=== PATIENT | female | born 1980 | race Caucasian/White ===

== ENCOUNTER → 2018-02-08 13:52 | Outpatient (CLI) | payer MEDICAID, SELFPAY ==
[2018-02-05 15:06] VITALS: BMI 27.5
--- NOTE | 2018-02-08 13:58 | MRI_ITS ---
STUDY: MRI FEMALE PELVIS WITHOUT AND WITH IV CONTRAST. REASON FOR EXAM: Female, 37 years old. CA of vaginal cuff, history of cervical CA. Removal of left ovary,uterus and cervix 2016 TECHNIQUE: Multisequence multiplanar MRI of the pelvis was performed without and with IV contrast, Gadavist 8 mL. COMPARISON: CT abdomen and pelvis 02/08/2018. FINDINGS: Intimately adjacent to the right apical aspect of the vaginal cuff remnant, and extending into the right adnexa, there is a multi loculated mass exhibiting both thin and thickened septations, with enhancement of the septations, and exhibiting some minimal nodular components against the right lateral internal wall of the cysts. These features are consistent with cystic malignancy. This process measures 5.9 cm anterior-posterior, 4.3 cm transverse, and 5.8 cm craniocaudal. No apparent lymphadenopathy. The vaginal vault appears normal. The urinary bladder appears to be very mildly thick-walled and mildly trabeculated. Evaluated portions of the bowel exhibit no acute abnormality. Several loops of ileum are intimately associated with the wall of the right adnexal mass. Probably merely draped around its margins. Adhesions to the mass cannot be entirely excluded. MRI/Pelvis W/WO Contrast IMPRESSION: Multiloculated complex cystic mass of the right adnexa intimately associated with the right apical margin of the remnant vaginal cuff, consistent with malignancy. Electronically Signed: Mike Zavaleta, at 14:54 EDT Tel , Service support ,
== END ==
PROVIDERS: Family Provider Nurse Practitioner Family; PCP Nurse Practitioner Family; Visit Provider Student in an Organized Health Care Education/Training Program
DX: C53.9 Malignant neoplasm of cervix uteri, unspecified (principal)
CPT/HCPCS: 72197; A9585

== ENCOUNTER 2018-02-16 11:12 | Day surgery (SDC) | payer MEDICAID, SELFPAY ==
[2018-02-08 16:23] VITALS: BMI 27.5
[2018-02-16] VITALS (7 sets, daily range): BP systolic 92–116; BP diastolic 54–75; PULSE 69–97; RESP 16; TEMP 36.6–37.1; O2SAT 98–100; BMI 27.6
[2018-02-16] MEDS: Cefazolin 2 GM in 0.9% Normal Saline 100 ML IV (13:00)
[2018-02-16] MEDS: Bupivacaine Mpf 0.5% 30 ML VIAL (13:25)
--- NOTE | 2018-02-16 13:32 | PCM.OPRPT ---
Problem List (1) Cervix cancer Status: Acute Qualifiers: Malignant neoplasm of cervix location: unspecified location (2) Encounter for adjustment or management of vascular access device Status: Acute Report of Operation Date of Procedure: 02/16/18 Pre-Operative Diagnosis: Cervical cancer. Adjustment fit for CVS catheter Post-Operative Diagnosis: same Surgery/Procedure Performed:: Placement of a right IJ PowerPort Type of Anesthesia:: MAC Description of Procedure: Patient was brought into the operating room. Placed in the supine position. I ultrasound the right neck and identify the internal jugular vein. The neck and chest were then marked appropriately. They were then sterilely prepped and draped. Local was injected into the neck. Seldinger's technique was used to gain access to the internal jugular vein. A guidewire was placed over the needle the needle was removed. Fluoroscopy was used to confirm proper placement of the wire. I injected local into the chest. An incision was made and electrocautery was used to create a pocket for the port. I made a skin luigi in the neck place a dilator over the guidewire removing the dilator and placed the dilator and sheath over the guidewire removing the dilator and guidewire single lumen catheter was then placed into the superior vena cava fluoroscopy was used to confirm proper length. I tunneled from the pocket created over the collarbone into the neck and brought the catheter down cut to length placed a locking amount of the catheter and the port onto the catheter and secured the 2 with a locking hub. It flushed and irrigated well was flushed with 5 cc of hep flush. It was sutured into the pocket with 2 sutures of 0 Prolene. Skin incisions were brought together with deep dermal stitches of 3-0 Vicryl. Dermabond was applied sterile dressings were applied the patient tolerated the procedure well. Postoperative chest x-ray was obtained showing no pneumothorax and the tip of the catheter to be located within the superior vena cava. - Admit VTE Documentation VTE Present on Admission: No VTE Mechan Device Prophylaxis: SCD's VTE Pharm Prophylaxis ordered?: No Reason prophylaxis not ordered:: Treatment Not Indicated
--- NOTE | 2018-02-16 13:33 | PCM.DC.POR ---
Allergies/Adverse Reactions: Allergies adhesive tape Allergy (Verified 02/15/18 10:54) Rash Sulfa (Sulfonamide Antibiotics) Allergy (Verified 02/15/18 10:54) Unknown Medications to take at Discharge Aspirin/Acetaminophen/Caffeine [Excedrin Migraine Caplet] 1 ea PO PRN PRN 02/05/18 Multivitamin [Multiple Vitamins] 1 ea PO DAILY 02/05/18 Lidocaine/Prilocaine [Lidocaine-Prilocaine Cream] 30 gm TP DAILY PRN PRN #1 cream..g. 02/13/18 Ondansetron [Zofran Odt] 8 mg PO Q8H PRN PRN 10 Days #30 tab.rapdis 02/13/18 Melatonin 5 mg PO QHS 02/15/18 Oxycodone HCl/Acetaminophen [Percocet 5/325] 1 - 2 tab PO Q4H PRN PRN 4 Days #30 tab 02/16/18 The following prescriptions were given: Oxycodone HCl/Acetaminophen [Percocet 5/325] 1 - 2 tab PO Q4H PRN PRN 4 Days #30 tab PRN Reason: Pain Primary Care Physician: Emma Giraldo NP-C [Primary Care Provider] - Test Results: Test results from this visit will be discussed in further detail at your follow-up appointment, if applicable.
[2018-02-16] MEDS: oxyCODONE 5 MG Tablet PO (14:42)
== END 2018-02-16 15:26 | disposition home or self-care (01) ==
LOC: SDC 11:14 → AC 11:15
PROVIDERS: Family Provider Nurse Practitioner Family; PCP Nurse Practitioner Family; Visit Provider Surgery
PROC: (CPT 36561; principal; 2018-02-16 13:30)
DX: Z45.2 Encounter for adjustment and management of vascular access device (principal); C53.9 Malignant neoplasm of cervix uteri, unspecified; F41.9 Anxiety disorder, unspecified; F32.9 Major depressive disorder, single episode, unspecified; Z79.899 Other long term (current) drug therapy; Z87.891 Personal history of nicotine dependence; J44.9 Chronic obstructive pulmonary disease, unspecified
CPT/HCPCS: 36561; 71045; 77001; J7120; C1788; J2405

== ENCOUNTER → 2018-03-16 12:29 | Outpatient (CLI) | payer MEDICAID, SELFPAY ==
[2018-02-08 16:23] VITALS: BMI 27.5
--- NOTE | 2018-03-16 13:00 | MRI_ITS ---
STUDY: MR PELVIS WITH T WITHOUT CONTRAST REASON FOR EXAM: Female, 37 years old. Recurrent cervical cancer. Assess disease response to chemotherapy and radiation therapy. TECHNIQUE: Standardized fat and water weighted pulse sequences were obtained in all 3 orthogonal planes, pre-and post contrast administration. 7 ml of Gadavist contrast material was administered intravenously for the contrast portion of the examination. COMPARISON: MRI pelvis 02/08/2018, CT pelvis 02/08/2018.. FINDINGS: On prior imaging, there is a complex cystic mass with multiple thickened septations in the right adnexa. Body wall soft tissues: No acute process. Osseous structures: No acute process. Minimal disc degeneration with disc bulge at L5-S1 without stenosis. Extraperitoneal: There is no mass or lymphadenopathy of the pelvic floor, sidewalls, prevesical space or retroperitoneum. Bowel: Evaluated portions of the small bowel are normal. Normal appendix. Evaluated portions of the large bowel exhibit no acute process. Urinary tract: The distal ureters are nondilated. Urinary bladder wall is mildly thickened and mildly trabeculated. Vagina: Normal. Remnant cervical cuff: The cystic right adnexal mass extends upward from the margin of the remnant cervical cuff, closely associated. However, there appears to be a definable tissue planes between the 2 structures especially on the sagittal images, and there is no morphologic deformity of the remnant cervical cuff to suggest that the cystic lesion of the right adnexa is emerging from dose tissues. Left ovary: Surgically absent. Right ovary: The right ovarian cystic mass has changed in morphology compared to prior imaging. It now has fewer and thinner septations although there is still a mildly thickened enhancing septation along its inferior lateral aspect, and there is still mild thickening and enhancement of the inferior lateral wall. The remainder of the wall of the structure is rather thin. The entire structure now measures up to 7.3 cm anterior-posterior, 5.8 cm craniocaudal, and 6.6 cm transverse. The thickened tissue lying along the right inferior lateral margin measures up to 1.17 cm in thickness, and appears to be crab clawing around the margin of the cyst. This segment lies along the margin of the broad ligament in the expected position of an ovary. This may be normal ovarian tissue. There is no pelvic free fluid. MRI/Pelvis W/WO Contrast IMPRESSION: On prior imaging the cystic mass measured up to 5.9 cm anterior-posterior, 4.3 cm transverse and 5.8 cm craniocaudal. On today's images, the cystic mass measures up to 7.3 cm anterior-posterior, 6.6 cm transverse, and 5.8 cm craniocaudal. This cystic mass has mildly expanded in size. However compared to prior imaging there is an increase in the cystic component, with a notable decrease in the number and thickness of septations, in the thickness of the wall, and of mild nodularity of the septations. This may reflect partial regression of viable neoplasm, despite the expansion of the cystic component. On today's study there is a more distinct soft tissue plane between the base of the cystic neoplasm, and the margin of the cervical cuff remnant. Therefore this supports ovarian origin of the neoplasm rather than cervical origin. Electronically Signed: Mike Zavaleta, at 14:49 EDT Tel , Service support ,
== END ==
PROVIDERS: Family Provider Nurse Practitioner Family; PCP Nurse Practitioner Family
DX: D49.59 Neoplasm of unspecified behavior of other genitourinary organ (principal)
CPT/HCPCS: 72197; A9585

== ENCOUNTER → 2019-02-17 | Outpatient (CLI) | payer MEDICAID, SELFPAY ==
[2018-02-08 16:23] VITALS: BMI 27.5
[2019-02-17 14:00] VITALS: BMI 28.1
== END | disposition home or self-care (01) ==
LOC: LABSPEC 16:36
PROVIDERS: Family Provider Nurse Practitioner Family; PCP Nurse Practitioner Family; Visit Provider Physician Assistant Medical
DX: R30.0 Dysuria (principal)
CPT/HCPCS: 87086; 87088

== ENCOUNTER 2019-04-19 00:37 | Emergency (ER) | payer MEDICAID, SELFPAY ==
[2018-02-08 16:23] VITALS: BMI 27.5
[2019-02-17 14:00] VITALS: BMI 28.1
[2019-04-19 00:39] VITALS: BP 126/74; PULSE 79; RESP 19; TEMP 37.3; O2SAT 99; BMI 27.8
[2019-04-19 00:45] VITALS: BP 112/75; PULSE 76; RESP 17; TEMP 37.2; O2SAT 99
--- NOTE | 2019-04-19 01:22 | ED.VIS.GEN ---
History of Present Illness Chief Complaint: Constipation Informant: Patient, Significant Other Onset: Weeks - 1 Context: Gradual Onset Timing: Continuous Quality: constipated Current Severity: Severe Maximum Severity: Severe Worsened by: n/a Relieved by: nothing - tried stool softeners, miralax, MOM Associated Symptoms: Bloating, pressure in abdomen without other pain Narrative: Patient has had constipation off and on for about 1-2 months. She has switched back and forth from diarrhea from time to time, she has had urinary infections last month and was on a couple courses of antibiotics. She has had back pain that is worsening and just started taking Percocet prescribed by her doctor 2 days ago which made her constipation worse and now she feels like she needs to go but cannot. She did nausea but no vomiting. No fevers. No significant pain in her abdomen just pressure and fullness feeling. - Past Medical History (1) Cervix cancer Status: Chronic (2) Anemia Status: Chronic Past Medical History - Allergies and Home Meds Allergies/Adverse Reactions: Allergies Sulfa (Sulfonamide Antibiotics) Allergy (Severe, Verified 04/19/19 00:41) Hives adhesive tape Allergy (Intermediate, Verified 04/19/19 00:41) Rash Primary Care Physician: Emma Giraldo NP-C [Primary Care Provider] - Surgical History: hysterectomy Lives: Spouse/ Significant Other Smoking Status: Former smoker Review of Systems General: Denies: Chills, Fever, Sweats Cardiovascular: Denies: Chest pain, Palpitations Respiratory: Denies: Dyspnea, Cough Gastrointestinal: Reports: Abdominal pain, Nausea, Diarrhea - Some today after taking laxatives without significant stool production, Constipation. Denies: Melena, Hematochezia Genitourinary: Denies: Dysuria, Hematuria, Frequency Musculoskeletal: Reports: Back pain. Denies: Neck pain, Swelling, Extremity Pain Physical Exam Vital Signs/Narrative: Vital Signs Temp Pulse Resp BP Pulse Ox 04/19/19 00:45 99 F 76 17 112/75 99 04/19/19 00:39 99.1 F 79 19 H 126/74 H 99 Inital Vital Signs reviewed: Yes General: Well nourished, Well developed, No Acute Distress Head: Normocephalic, Atraumatic Eyes: Perrl, EOMI Cardiovascular: Regular rate, Regular rhythm, No murmurs Respiratory: No distress, CTA bilaterally, Chest nontender Abdomen: Soft, Nontender, Normal bowel sounds, - - Mild distention, soft Rectal: Nontender, - - No large area of hard stool palpable. Some soft nonbloody brown stool on digital exam. No abscess. Skin: Normal color, No rash Neurological: Alert, Oriented x3, Cranial nerves II-XII grossly intact, Normal Strength, Normal Sensation Psychological: Normal affect, Normal Mood Diagnostic/Tx/Re-eval - Medical Decision Making Abdomen is benign, symptoms are consistent with constipation and I do not think she needs work-up here. She was agreeable to treatment with manual disimpaction and an enema after we discussed the causes and treatments of constipation. She has MiraLAX at home that she can use. I was not able to take out any stool, but after soapsuds enema she did have a bowel movement, some stool came out, and she was feeling better and is requesting to be discharged home which I think is reasonable. We discussed using magnesium citrate as needed as well. ED Disposition - Plan for ED Patient: Disposition: Home or Assisted Living Diagnosis: Constipation Instructions: CONSTIPATION (Adult) Referrals: Emma Giraldo NP-C [Primary Care Provider] - 3-5 Days if not improving Additional Instructions: Magnesium citrate -- drink half bottle and alan with plenty of fluids/water. It will take several hours for it to produce a bowel movement. If you do not have great results, you may repeat 24 hours after the initial with the rest of the bottle. Use stool softener simultaneously, such as docusate sodium/Colace. After all of that, you may continue then using MiraLAX 1 capful dissolved, daily. Limit your use of Percocet, as it makes constipation worse.
[2019-04-19] MEDS: Magnesium Citrate 300 ML 150 ML PO (03:25)
[2019-04-19 03:26] VITALS: BP 107/65; PULSE 77; RESP 17; O2SAT 99
== END 2019-04-19 03:29 | disposition home or self-care (01) ==
PROVIDERS: Emergency Provider Emergency Medicine; Family Provider Nurse Practitioner Family; PCP Nurse Practitioner Family
DX: K59.00 Constipation, unspecified (principal); R11.0 Nausea; D64.9 Anemia, unspecified; Z85.41 Personal history of malignant neoplasm of cervix uteri; Z87.440 Personal history of urinary (tract) infections; Z79.82 Long term (current) use of aspirin; Z87.891 Personal history of nicotine dependence
CPT/HCPCS: 99284

== ENCOUNTER 2019-05-04 13:23 | Emergency (ER) | payer MEDICAID, SELFPAY ==
[2018-02-08 16:23] VITALS: BMI 27.5
[2019-05-04 13:24] VITALS: BP 124/87; PULSE 117; RESP 18; TEMP 36.4; BMI 26.4
--- NOTE | 2019-05-04 13:43 | RAD_ITS ---
STUDY: X-RAY - SACRUM/COCCYX REASON FOR EXAM: Female, 38 years old. Low back pain. TECHNIQUE: 4 view(s) of the sacrum and coccyx were obtained. COMPARISON: None. FINDINGS: Normal bilateral sacroiliac joints. Normal visualized sacral ala and fused sacral bodies. Normal sacrococcygeal junction with a normal angulation. Normal coccygeal segments. There are multiple pelvic calcifications consistent with phleboliths. RAD/Sacrum-Coccyx min 2 Views IMPRESSION: No demonstrated acute osseous changes. Electronically Signed: Jonathon Sánchez MD at 15:13 EST Tel , Service support ,
[2019-05-04] MEDS: Ketorolac 30 MG/ML Syringe IM (14:02)
--- NOTE | 2019-05-04 14:20 | ED.DCSUM_ITS ---
History of Present Illness Chief Complaint: Back Informant: Patient Narrative: 38-year-old female presents with tailbone pain. States that she has been having this for a month. It has been worsening over the last few days. States that in 3 days she is scheduled to have an MRI done. States that her oncologist has been prescribing her oxycodone. Initially was taking 5 mg oxycodone. Lately she has been taking 10 mg oxycodone every 3 hours. Last dose was 9 AM today. States that she is now out of her pain medicine. Denies any falls or injuries. Denies any fevers or chills. Denies any nausea or vomiting. States pain is worse with movement and sitting on the toilet. Denies any dysuria. Denies any urinary retention, stool incontinence or saddle anesthesia. Past Medical History - Allergies and Home Meds Allergies/Adverse Reactions: Allergies Sulfa (Sulfonamide Antibiotics) Allergy (Severe, Verified 05/04/19 13:24) Hives adhesive tape Allergy (Intermediate, Verified 05/04/19 13:24) Rash Primary Care Physician: Emma Giraldo NP-C [Primary Care Provider] - Surgical History: hysterectomy Smoking Status: Never smoker Review of Systems General: Denies: Chills, Fever Cardiovascular: Denies: Chest pain Respiratory: Denies: Dyspnea, Cough Gastrointestinal: Denies: Abdominal pain, Nausea, Vomiting Musculoskeletal: Reports: - - Tailbone pain Neurological: Denies: Headache, Weakness Physical Exam Vital Signs/Narrative: Vital Signs Temp Pulse Resp BP 05/04/19 13:24 97.6 F L 117 H 18 124/87 H General: Well nourished, Well developed, No Acute Distress Head: Normocephalic, Atraumatic Eyes: Perrl, EOMI ENT: Moist mucous membranes, No rhinorrhea Neck: Supple, Nontender Cardiovascular: Regular rate, Regular rhythm, No murmurs Respiratory: No distress, CTA bilaterally, Chest nontender Abdomen: Soft, Nontender, Nondistended, Normal bowel sounds Back: - - No tenderness throughout thoracic or lumbar midline spine. Patient does admit to tenderness over her sacral region. No abscess noted. No signs of trauma. No cellulitis. Patient does have minimal pain with palpation Extremities: Nontender, No edema Skin: Normal color, No rash Neurological: Alert, Oriented x3, Cranial nerves II-XII grossly intact, Normal Strength, Normal Sensation, - - 5 out of 5 strength in the lower extremities. EHL intact bilaterally. Distal pulses intact. 2/4 patellar reflexes bilaterally. Psychological: Normal affect, Normal Mood Diagnostic/Tx/Re-eval - Medical Decision Making Evaluated for tailbone pain. Denies any trauma. Appears well and nontoxic. X- ray obtained. Given Toradol. Patient does have a history of hysterectomy. I am not concerned for . X-rays unremarkable. Patient's pain did improve with her Toradol. Patient will be given a short course of narcotic pain medication. Orders was reviewed. She will be instructed to follow-up with her primary care provider in 2 to keep her appointment for her MRI. Patient was in agreement with the plan and discharged home. ED Disposition - Plan for ED Patient: Disposition: Home or Assisted Living Diagnosis: Tail bone pain Instructions: BACK PAIN (Acute or Chronic) Prescriptions: Oxycodone HCl/Acetaminophen [Percocet 5/325] 1 - 2 tablet PO Q4H PRN PRN 3 Days #12 tablet PRN Reason: Pain Referrals: Emma Giraldo NP-C [Primary Care Provider] - 3-5 Days
--- NOTE | 2019-05-04 16:00 | ED.DCSUM_ITS ---
- ER Visit Summary Date of Service: 05/04/19 Chief Complaint: [Addendum to dictation by Dr. Sourav Gaytan] History of Present Illness: The patient is a 38 F [presented to the emergency department complaining of pain in her low back and sacrum for about a month. Patient states she initially started with some urinary tract symptoms that resolved with the pain never resolved. Patient states that she is currently being seen by her primary care physician and oncologist for this pain. Patient has a scheduled MRI in 3 days of her low back and sacrum. Patient recently had a PET scan of the area and no abnormalities were noted. Patient denies any falls or trauma. Patient's been using oxycodone at home for pain and gets temporary relief but then the pain returns pretty quickly. Patient had a hard time sleeping at night. Patient also has been using ibuprofen. Decreased appetite.] Physical Examination: [HEENT-PERRLA, EOMI. Cranial nerves II through XII grossly intact. TMs clear. Mucous membranes moist. No adenopathy. Cardiovascular-regular rate and rhythm without murmur or ectopy Lungs-clear to auscultation, chest wall stable without crepitus or subcu emphysema Abdomen-normoactive bowel sounds, soft, nontender, no rebound or rigidity, no peritoneal signs. Back exam-patient has some diffuse tenderness over the lumbar paraspinal musculature on the right and left as well as some lower lumbar spine tenderness on exam. There is no erythema or warmth noted. Patient has negative straight leg raises. Deep tendon reflexes are plus 2 out of 4 bilaterally at the patella and Achilles. Patient has normal 5 extension. Extremities-intact ?4, normal range of motion, normal pulses, atraumatic] Test Results: [X-rays of the pelvis were negative] Emergency Department Course and Treatment: [She was given Toradol in the department she had good pain relief with that.] Treatment Plan: [She will be given a few oxycodone for pain to get her through the time. Between now and her MRI. Patient will be advised to follow-up with primary care physician and oncologist.] Disposition: [Discharged home in stable condition] Impression: [Back pain-etiology uncertain] This note was generated with [employer] software. It may contain incorrect words, spelling, and punctuation that were not noted in review of the chart prior to signing ED Disposition - Plan for ED Patient: Referrals: Emma Giraldo, INOCENC[facility]-C [Primary Care Provider] -
[2019-05-04 16:42] VITALS: BP 112/69; PULSE 74
== END 2019-05-04 16:43 | disposition home or self-care (01) ==
PROVIDERS: Emergency Provider Emergency Medicine; Family Provider Nurse Practitioner Family; PCP Nurse Practitioner Family
DX: M54.5 Low back pain (principal); M53.3 Sacrococcygeal disorders, not elsewhere classified
CPT/HCPCS: 72220; 96372; 99282

== ENCOUNTER 2019-05-06 11:11 | Emergency (ER) | payer MEDICAID, SELFPAY ==
[2018-02-08 16:23] VITALS: BMI 27.5
[2019-05-06 11:13] VITALS: BP 106/89; PULSE 117; RESP 20; TEMP 36.3; O2SAT 98; BMI 26.1
[2019-05-06 11:54] VITALS: BP 110/68; PULSE 79; RESP 18; O2SAT 99
[2019-05-06] MEDS: diazePAM 5 MG Tablet PO (11:59)
--- NOTE | 2019-05-06 12:02 | RAD_ITS ---
STUDY: X-RAY - ABDOMEN/PELVIS REASON FOR EXAM: Female, 38 years old. Constipation TECHNIQUE: Single AP view of the abdomen / pelvis. COMPARISON: None. FINDINGS: Normal visualized lung bases. There is an unremarkable bowel gas pattern. There is no demonstrated free abdominal air. The visualized liver, spleen and kidneys are grossly normal in size and morphology. Normal soft tissue structures. Normal visualized osseous structures. RAD/Abdomen Single View IMPRESSION: Normal x-ray examination of the abdomen and pelvis. Electronically Signed: Mike Gurrola MD at 12:24 EST Tel , Service support ,
--- NOTE | 2019-05-06 12:53 | ED.VIS.GEN ---
History of Present Illness Chief Complaint: Back Informant: Patient Onset: Today Current Severity: Moderate Maximum Severity: Moderate Narrative: Patient has chronic back pain. In fact she is due to have an MRI tomorrow. She comes today because she is worried about her spine since she had an episode of bowel incontinence. She had just taken milk of magnesia a few hours before that. She denies any decreased sensation around her rectum. She also has chronic vaginal bleeding from some sort of endovaginal growth that she is being seen by her [employer] doctor, she had a recent biopsy. She denies any dysuria. She denies any weakness in her arms or legs, she has no paresthesias. Past Medical History - Allergies and Home Meds Allergies/Adverse Reactions: Allergies Sulfa (Sulfonamide Antibiotics) Allergy (Severe, Verified 05/06/19 11:12) Hives adhesive tape Allergy (Intermediate, Verified 05/06/19 11:12) Rash Primary Care Physician: Emma Giraldo NP-C [Primary Care Provider] - Past Medical History: - - Call cancer a in remission, chronic back pain Surgical History: hysterectomy Smoking Status: Former smoker Review of Systems General: Denies: Fever Cardiovascular: Denies: Chest pain Respiratory: Denies: Dyspnea Gastrointestinal: Denies: Abdominal pain, Nausea, Vomiting Genitourinary: Reports: - - Chronic vaginal bleeding despite hysterectomy being followed up by [employer]. Denies: Dysuria, Hematuria, Frequency Musculoskeletal: Reports: Back pain Skin: Denies: Rash Neurological: Denies: Headache, Weakness Psych: Reports: Anxiety Endocrine: Denies: Polyuria Hematologic: Denies: Easy bruising, Easy bleeding Physical Exam Vital Signs/Narrative: Vital Signs Temp Pulse Resp BP Pulse Ox 05/06/19 11:54 79 18 110/68 99 05/06/19 11:13 97.4 F L 117 H 20 H 106/89 H 98 General: - - Appears somewhat anxious ENT: Moist mucous membranes Cardiovascular: Regular rate, Regular rhythm Respiratory: No distress, CTA bilaterally Abdomen: Nontender, Nondistended Rectal: - - Normal rectal tone. Normal sensation. : - - External exam is normal. Back: - - Tenderness over the lumbar region diffusely. Extremities: No edema. Negative for: Tenderness Neurological: - - Normal patellar and Achilles reflexes. Normal plantarflexion and dorsiflexion of both feet and both great toes. Psychological: Tearful Diagnostic/Tx/Re-eval KUB read by myself as well as the radiologist. Shows normal bowel gas pattern. No signs of obstruction. No obvious stool burden - Medical Decision Making Has a normal KUB. Appears well. She has no signs of cauda equina. She is reassured. The reason for her burst of stool is likely because of the milk of magnesia. I will discharge her she can get an MRI tomorrow she was quite anxious and I gave her some Valium she significantly improved. Discharge stable condition ED Disposition - Plan for ED Patient: Disposition: Home or Assisted Living Diagnosis: Back pain Instructions: BACK AND NECK PAIN, General Referrals: Emma Giraldo NP-C [Primary Care Provider] -
[2019-05-06 13:16] VITALS: BP 112/89; PULSE 82; RESP 16; O2SAT 99
== END 2019-05-06 13:17 | disposition home or self-care (01) ==
PROVIDERS: Emergency Provider Emergency Medicine; Family Provider Nurse Practitioner Family; PCP Nurse Practitioner Family
DX: M54.9 Dorsalgia, unspecified (principal); G89.29 Other chronic pain; N93.9 Abnormal uterine and vaginal bleeding, unspecified; F41.9 Anxiety disorder, unspecified; Z90.710 Acquired absence of both cervix and uterus; Z87.891 Personal history of nicotine dependence
CPT/HCPCS: 74018; 99282

== ENCOUNTER 2019-05-23 21:29 | Emergency (ER) | payer MEDICAID, SELFPAY ==
[2018-02-08 16:23] VITALS: BMI 27.5
[2019-05-23 21:30] VITALS: BP 107/74; PULSE 140; RESP 18; TEMP 36.2; O2SAT 97; BMI 25.1
[2019-05-23 22:36] LABS: Absolute Lymphocyte Count 1.26 X10^3/uL (0.83-4.51); Basophil# 0.04 X10^3/uL; Basophil% 0.4 % (0-1); Eosinophil# 0.32 X10^3/uL; Hematocrit 32.1 % (37-47); Hemoglobin 10.5 g/dL (12.0-15.0); Lymphocyte # 1.26 X10^3/ul (4.0); Lymphocyte % 11.9 % (19-41); Mean Corp Hgb Conc 32.7 g/dL (32-36); Mean Corpuscular Hgb 29.6 pg (27.0-32.0); Mean Corpuscular Volume 90.4 fL (81-99); Mean Platelet Vol. 8.6 fl (6.2-12.0); Monocyte# 0.88 X10^3/uL; Monocyte% 8.3 % (0-10); NRBC Flagged by Analyzer 0 % (0-5); Neutrophil # 7.99 X10^3/uL (2.7-7.7); Neutrophil % 75.7 % (47-70); Platelet Count 584 K/mm3 (150-450); RBC Distribution Width CV 13.2 % (11.6-14.6); RBC Distribution Width SD 43.4 fl (35.1-43.9); Red Blood Count 3.55 M/mm3 (4.2-5.4); White Blood Count 10.6 K/mm3 (4.4-11.0)
[2019-05-23 22:38] LABS: Anion Gap 11 (5-15); BUN 13 mg/dL (7-18); BUN/Creat Ratio 20.2 RATIO (10-20); Calcium,Total 9.7 mg/dL (8.5-10.1); Chloride 104 mmol/L (98-107); Creatinine, Serum 0.64 mg/dL (0.55-1.02); EST Glomerular Filtration Rate 109 mL/min (>60); Est Glom Filt Rate - Afr Amer 132 mL/min (>60); Estimated Creatinine Clearance 101.91 ml/min; Glucose 110 mg/dL (74-106); Potassium 3.3 mmol/L (3.5-5.1); Sodium Level 139 mmol/L (136-145)
[2019-05-23] MEDS: 0.9% Normal Saline 1,000 ML 999 ML IV (23:08)
--- NOTE | 2019-05-23 23:10 | ED.DCSUM_ITS ---
- ER Visit Summary Date of Service: 05/23/19 Chief Complaint: Vaginal bleeding History of Present Illness: The patient is a 39 F who presents with vaginal bleeding. It started today. Last week the patient had a colostomy placement with a rectovaginal fistula repair performed at [facility]. She states that things have been going well up until today when she started bleeding. She had no increase in pain. She has a history of cervical cancer and has had a radical hysterectomy in the past. She denies any fevers. She describes cramping throughout her abdomen. She has received multiple rounds of chemotherapy and radiation back in 2018 for her cancer. Physical Examination: Vital signs reviewed. HEENT exam unremarkable. Heart is tachycardic and regular rhythm without murmurs. Lungs are clear to auscultation bilaterally. Abdomen is soft and diffuse tenderness. Colostomy is nontender and in place on the left-hand side. There is no distention. Vaginal exam is deferred due to her recent surgery. Skin exam reveals no rashes or cyanosis. Her neurologic exam is normal. Test Results: Hemoglobin 10.5, platelet count 584. Potassium 3.3. Emergency Department Course and Treatment: I deferred on the vaginal exam because the patient states it is very painful and it is very obvious that the blood is coming from the vaginal area and not the rectal area. She has had multiple visits to the bedside commode where she has had blood that covers the bottom of the pale. Her hemoglobin when she left [facility] was 10.3 but this is likely going to get lower as she keeps on bleeding. I feel she is to be [place] sferred back to [facility] due to her recent surgery for the rectovaginal fistula. I discussed this with the transfer center and the patient will be transferred to the emergency department to be evaluated by the physicians there due to a lack of inpatient beds. Treatment Plan: [] Disposition: Transfer Impression: Vaginal bleeding, recent rectovaginal fistula repair This note was generated with [employer] dictation software. It may contain incorrect words, spelling, and punctuation that were not noted in review of the chart prior to signing ED Disposition - Plan for ED Patient: Referrals: Emma Giraldo NP-C [Primary Care Provider] -
[2019-05-23 23:33] VITALS: BP 108/77; PULSE 102; RESP 18; O2SAT 100
[2019-05-23] MEDS: LORazepam 2 MG/ML Syringe 1 MG IV (23:34)
[2019-05-23 23:47] VITALS: BP 107/88; PULSE 102; RESP 18; O2SAT 100
== END 2019-05-23 23:48 | disposition home or self-care (01) ==
LOC: ED 22:23
PROVIDERS: Emergency Provider Emergency Medicine; Family Provider Nurse Practitioner Family; PCP Nurse Practitioner Family
DX: N93.9 Abnormal uterine and vaginal bleeding, unspecified (principal); R10.9 Unspecified abdominal pain; Z98.890 Other specified postprocedural states; Z87.19 Personal history of other diseases of the digestive system; Z93.3 Colostomy status; Z85.41 Personal history of malignant neoplasm of cervix uteri; Z92.3 Personal history of irradiation; Z92.21 Personal history of antineoplastic chemotherapy; Z90.710 Acquired absence of both cervix and uterus
CPT/HCPCS: 80048; 85025; 86850; 86900; 86901; 96361; 96374; 99284; J7030; A4216

== ENCOUNTER 2019-06-17 09:42 | Emergency (ER) | payer MEDICAID, SELFPAY ==
[2018-02-08 16:23] VITALS: BMI 27.5
[2019-06-17 09:45] VITALS: BP 99/61; PULSE 88; RESP 20; TEMP 36.7; O2SAT 100; BMI 23.6
[2019-06-17] MEDS: fentaNYL 100 MCG/2 ML Ampul 25 MCG IV ×2 (10:27→11:31)
[2019-06-17] MEDS: 0.9% Normal Saline 1,000 ML 1000 ML IV (10:28)
[2019-06-17 10:32] LABS: Absolute Lymphocyte Count 1.33 X10^3/uL (0.83-4.51); Absolute Neutrophil Count 13.3 X10^3/uL (2.0-7.7); Basophil# 0.05 X10^3/uL; Basophil% 0.3 % (0-1); Eosinophil# 0.38 X10^3/uL; Eosinophils% 2.3 % (0-5); Hematocrit 23.9 % (37-47); Hemoglobin 7.6 g/dL (12.0-15.0); Lymphocyte # 1.33 X10^3/ul (4.0); Lymphocyte % 8.2 % (19-41); Mean Corp Hgb Conc 31.8 g/dL (32-36); Mean Corpuscular Hgb 29.1 pg (27.0-32.0); Mean Corpuscular Volume 91.6 fL (81-99); Mean Platelet Vol. 8.8 fl (6.2-12.0); Monocyte# 1.14 X10^3/uL; NRBC Flagged by Analyzer 0 % (0-5); Neutrophil # 13.28 X10^3/uL (2.7-7.7); Neutrophil % 81.5 % (47-70); Platelet Count 611 K/mm3 (150-450); RBC Distribution Width CV 13.7 % (11.6-14.6); RBC Distribution Width SD 46.2 fl (35.1-43.9); Red Blood Count 2.61 M/mm3 (4.2-5.4); White Blood Count 16.3 K/mm3 (4.4-11.0)
[2019-06-17 10:42] LABS: International Normalized Ratio 1.1; Prothrombin Time (Protime)PT. 13.6 SECONDS (11.7-14.9)
[2019-06-17 10:43] LABS: Partial Thromboplast Time 34.9 Seconds (24.1-36.2)
--- NOTE | 2019-06-17 10:43 | ED.DCSUM_ITS ---
History of Present Illness Chief Complaint: Vag Bleeding Informant: Patient Onset: Today Current Severity: Moderate Maximum Severity: Moderate Narrative: Patient presents with concerns of bleeding vaginally and rectally. She is a history of cervical cancer and had a radical hysterectomy in 2018. She had a colostomy placed on May 15 along with a rectovaginal fistula repair at [facility]. Patient has had some intermittent vaginal bleeding since that time. She was seen here earlier this month and transferred to [facility]. She states they watched her blood counts and transfused her. Patient states she is had some intermittent bleeding since getting home, but this morning bleeding was significantly heavier. She states she filled the commode 3 times with blood and clots. She has a lot of lower abdominal cramping. She believes she also has some blood coming from the rectum. She has not noted significant blood in her colostomy. - Past Medical History (1) Anxiety Status: Chronic (2) Asthma Status: Chronic (3) COPD (chronic obstructive pulmonary disease) Status: Chronic (4) H/O: hysterectomy Status: Chronic (5) Cervix cancer Status: Chronic Past Medical History - Allergies and Home Meds Allergies/Adverse Reactions: Allergies Sulfa (Sulfonamide Antibiotics) Allergy (Severe, Verified 05/23/19 21:32) Hives adhesive tape Allergy (Intermediate, Verified 05/23/19 21:32) Rash Primary Care Physician: Emma Giraldo NP-C [Primary Care Provider] - Doctors: Dr. Newton at [facility] Prior records reviewed: Yes Surgical History: hysterectomy Lives: Spouse/ Significant Other Smoking Status: Never smoker Review of Systems General: Denies: Chills, Fever Eyes: Denies: Visual changes - bilaterally ENT: Denies: Bilateral ear pain Cardiovascular: Denies: Chest pain Respiratory: Denies: Dyspnea Gastrointestinal: Reports: Abdominal pain Genitourinary: Denies: Dysuria Neurological: Reports: Weakness - Generalized weakness. Denies: Headache Hematologic: Denies: Easy bruising, Easy bleeding Allergy: Denies: Uticaria Physical Exam Vital Signs/Narrative: Vital Signs Temp Pulse Resp BP Pulse Ox 06/17/19 09:45 98.0 F 88 20 H 99/61 100 Inital Vital Signs reviewed: Yes General: No Acute Distress, - - Ill-appearing Head: Normocephalic ENT: Moist mucous membranes Neck: Supple Cardiovascular: Regular rate, Regular rhythm Respiratory: No distress, CTA bilaterally Abdomen: Soft, Tender - Mild lower abdominal tenderness.. Negative for: Guarding, Rebound tenderness Skin: Pallor - Mildly pale Neurological: Alert, Oriented x3 Psychological: Normal affect Diagnostic/Tx/Re-eval Laboratory Results 06/17/19 06/17/19 09:55 09:55 WBC 16.3 H RBC 2.61 L Hgb 7.6 L Hct 23.9 L MCV 91.6 MCH 29.1 MCHC 31.8 L RDW Std Deviation 46.2 H RDW Coeff of Honorio 13.7 Plt Count 611 H MPV 8.8 Immature Gran % (Auto) 0.700 Neut % (Auto) 81.5 H Lymph % (Auto) 8.2 L Luce % (Auto) 7.0 Eos % (Auto) 2.3 Baso % (Auto) 0.3 Absolute Neuts (auto) 13.3 H Absolute Lymphs (auto) 1.33 Nucleated RBC % 0 Sodium 135 L Potassium 4.7 Chloride 102 Carbon Dioxide 20.0 L Anion Gap 13 BUN 28 H Creatinine 2.51 H Estim Creat Clear Calc 25.98 Est GFR (MDRD) Af Amer 27 L Est GFR (MDRD) Non-Af 23 L BUN/Creatinine Ratio 11.2 Glucose 174 H Calcium 8.5 - Medical Decision Making It was clear from initial evaluation patient would require transfer back to [facility]. I initiated those phone calls immediately after seeing her. At this time we do have a bed available for her. I can get her transferred to their facility faster that I can get her blood type and crossed here. Her vital signs are stable. She be transferred to [facility] for further treatment and care. ED Disposition - Plan for ED Patient: Disposition: [facility] Diagnosis: Postoperative vaginal bleeding Referrals: Emma Giraldo NP-C [Primary Care Provider] -
[2019-06-17 10:45] LABS: Anion Gap 13 (5-15); BUN 28 mg/dL (7-18); BUN/Creat Ratio 11.2 RATIO (10-20); Calcium,Total 8.5 mg/dL (8.5-10.1); Chloride 102 mmol/L (98-107); Creatinine, Serum 2.51 mg/dL (0.55-1.02); EST Glomerular Filtration Rate 23 mL/min (>60); Est Glom Filt Rate - Afr Amer 27 mL/min (>60); Estimated Creatinine Clearance 25.98 ml/min; Glucose 174 mg/dL (74-106); Potassium 4.7 mmol/L (3.5-5.1); Sodium Level 135 mmol/L (136-145)
[2019-06-17] MEDS: 0.9% Normal Saline 1,000 ML 150 ML IV (11:31)
[2019-06-17] MEDS: proMETHazine 25 MG/ML Syringe 6.25 MG IV (11:31)
[2019-06-17 11:32] VITALS: BP 124/77; PULSE 101; RESP 18; O2SAT 97
[2019-06-17 11:59] VITALS: BP 121/73; PULSE 98; RESP 14; O2SAT 100
== END 2019-06-17 12:01 | disposition short-term general hospital (02) ==
PROVIDERS: Emergency Provider Emergency Medicine; Family Provider Nurse Practitioner Family; PCP Nurse Practitioner Family
DX: N99.820 Postprocedural hemorrhage of a genitourinary system organ or structure following a genitourinary system procedure (principal); R10.30 Lower abdominal pain, unspecified; J44.9 Chronic obstructive pulmonary disease, unspecified; Z79.899 Other long term (current) drug therapy; Z88.2 Allergy status to sulfonamides; Z93.3 Colostomy status; Z90.710 Acquired absence of both cervix and uterus
CPT/HCPCS: 80048; 85025; 85610; 85730; 86850; 86900; 86901; 99285; A4216

== ENCOUNTER 2019-10-04 13:03 | Outpatient (RCR) | payer MEDICAID, SELFPAY ==
[2018-02-08 16:23] VITALS: BMI 27.5
[2019-10-04 13:24] VITALS: BP 104/66; PULSE 80; RESP 16; TEMP 36.2; BMI 24.9
--- NOTE | 2019-10-04 16:56 | HBO.CON.PC_ITS ---
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 Current Visit: Yes Code(s): L59.8 - Other specified disorders of the skin and subcutaneous tissue related to radiation; Y84.2 - Radiological procedure and radiotherapy as the cause of abnormal reaction of the patient, or of later complication, without mention of misadventure at the time of the procedure (2) Radiation adverse effect Status: Chronic Current Visit: Yes Qualifiers: Encounter type: sequela Qualified Code(s): T66.XXXS - Radiation sickness, unspecified, sequela Code(s): T66.XXXA - Radiation sickness, unspecified, initial encounter (3) Post-irradiation vaginitis Status: Chronic Current Visit: Yes Code(s): N76.0 - Acute vaginitis (4) Rectovaginal fistula Status: Chronic Current Visit: Yes Code(s): N82.3 - Fistula of vagina to large intestine (5) Vesico-vaginal fistula Status: Chronic Current Visit: Yes Code(s): N82.0 - Vesicovaginal fistula (6) Hx of brachytherapy Status: Chronic Current Visit: Yes Code(s): Z92.3 - Personal history of irradiation (7) Hx of pneumothorax Status: Chronic Current Visit: Yes Code(s): Z87.09 - Personal history of other diseases of the respiratory system (8) Anxiety Status: Chronic Current Visit: Yes Code(s): F41.9 - Anxiety disorder, unspecified (9) COPD (chronic obstructive pulmonary disease) Status: Chronic Current Visit: Yes Qualifiers: COPD type: unspecified COPD Qualified Code(s): J44.9 - Chronic obstructive pulmonary disease, unspecified Code(s): J44.9 - Chronic obstructive pulmonary disease, unspecified (10) Cervix cancer Status: Resolved Current Visit: Yes Qualifiers: Malignant neoplasm of cervix location: endocervix Qualified Code(s): C53.0 - Malignant neoplasm of endocervix Code(s): C53.9 - Malignant neoplasm of cervix uteri, unspecified (11) Anemia Status: Chronic Current Visit: Yes Qualifiers: Anemia type: unspecified type Qualified Code(s): D64.9 - Anemia, unspecified Code(s): D64.9 - Anemia, unspecified History of Present Illness Date of Service: 10/04/19 Presenting Chief Complaint: 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 She has had regular PET scans to monitor for recurrence and has shown increased FDG activity which was subsequently biopsied on 04/17/2019 and found to be ulcerated fibrous tissue with fibronecrotic debris, organizing inflammation, radiation-related changes and squamous mucosa with focal epithelial atypia in the setting of acute inflammation. Since that time she has had continued pain, vaginal bleeding and has been diagnosed rectovaginal fistula and vesicovaginal fistulas and undergone surgery for a diverting colostomy to treat the rectovaginal fistula and nephrostomy tubes for diversion of her vesicovaginal fistula. She still has urinary incontinence and bleeding with wiping herself to clean her vaginal area when changing her incontinence briefs. She has dyspareunia and bleeding and has not had intercourse in over a year. Lubrication and topical treatments have not provided her any relief. She did have a significant amount of vaginal bleeding in June 2019 when she underwent diverting colostomy and nephrostomy and diagnosed with fistulas. 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) Radiation adverse effect (Chronic) Post-irradiation vaginitis (Chronic) Rectovaginal fistula (Chronic) Vesico-vaginal fistula (Chronic) Hx of brachytherapy (Chronic) Hx of pneumothorax (Chronic) Anemia (Chronic) Allergies/Adverse Reactions: Allergies Sulfa (Sulfonamide Antibiotics) Allergy (Severe, Verified 05/23/19 21:32) Hives adhesive tape Allergy (Intermediate, Verified 05/23/19 21:32) Rash Home Medications: Ambulatory Orders Medication Instructions Recorded Calcium Carb/Vitamin D3/Vit K1 1 ea PO DAILY 01/17/19 [Calcium + D Soft Chewable Tab] Duloxetine HCl 60 mg PO DAILY 01/17/19 Estradiol [Estrace (G)] 1 mg PO DAILY 01/17/19 Mv-Min/Folic/Vit K/Lycop/Coq10 1 tab PO DAILY 01/17/19 [Daily Multivitamin Capsule] Acetaminophen [Tylenol] 650 mg PO Q6H PRN PRN 05/23/19 Ferrous Sulfate [Iron] 325 mg PO DAILY 06/17/19 Oxycodone [Oxyir] 5 - 10 mg PO Q6H PRN PRN 06/17/19 Maternal Family History: Family History (Last Reviewed 10/04/19 @ 17:[address] Arlet Zuluaga DO) Mother Alcoholism Lung cancer Father Depression Suicidal behavior Uncle CVA (cerebral vascular accident) Grandmother Diabetes Grandfather Lung cancer Family History: Stroke Lives: Spouse/ Significant Other Smoking Status: Former smoker Tobacco Use: Non-smoker Alcohol: None Drugs: Marijuana Review of Systems Constitutional: Denies: Chills, Fever, Weight Change Eyes: Denies: Pain, Vision Change HEENT: Denies: Difficulty Hearing, Difficulty Swallowing, Sinus Congestion Cardiovascular: Denies: Chest Pain, Palpitations Respiratory: Denies: Cough, Shortness of Breath Gastrointestinal: Denies: Diarrhea, Nausea, Vomiting Genitourinary: Reports: Hematuria, Incontinence Gynecological: Reports: Vaginal bleeding Skin: Reports: Skin Changes Psychiatric: Reports: Anxiety, Depression Endocrine: Reports: Hx of Irradiation Hematologic/ Lymphatic: Denies: Easy Bruising, Easy Bleeding - Physical Exam Vital Signs Temp Pulse Resp BP 97.2 F L 80 16 104/66 10/04/19 13:24 10/04/19 13:24 10/04/19 13:24 10/04/19 13:24 General: Alert, Oriented x3, Cooperative, No apparent distress HEENT: Atraumatic, Normocephalic, TM's Clear, EAC Clear Oral: Moist Mucosa Neck: Supple, No JVD, Negative Carotid Bruits, No Nodes Lungs: Clear to auscultation, Normal air movement, No wheeze, No rales Cardiovascular: Regular rate, Regular Rhythm Abdomen: Soft, Non Tender, - - ostomy left mid abdomen Extremities: Edema Skin: Rash Present, Burn Psych/Mental Status: Normal Affect, Appropriate, Anxious Assessment/Plan Active Problems (Last Updated 02/17/19 @ 12:44 by Annie Moreno) Anxiety (Chronic) COPD (chronic obstructive pulmonary disease) (Chronic) 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 Hyperbaric Oxygen Therapy would be an essential adjunct in the resolution and treatment of this patient's presenting problem. This patient has sufficient physiologic and psychological stamina to undergo the rigors of hyperbaric oxygen therapy. As such, I recommend the following: Hyperbaric Oxygen Treatments at 2.0 ROJELIO in 100% Oxygen for 90 minutes per treatment, for 40 treatments. She will be reassessed after 15 days of treatment for improvement in her symptoms I have discussed the possible benefits of hyperbaric oxygen therapy with this patient. I have also presented and described the risks, including: air gas embolism, pneumothorax, central nervous system and pulmonary oxygen toxicity, flash pulmonary edema, hypoglycemia, reversible visual refractive changes, ear and sinus nicole-trauma, and confinement anxiety. The patient has verbalized understanding of these risks, and is still wanting to undergo hyperbaric oxygen therapy. The patient understands the significant time and transportation commitment involved in daily treatments of up to two hours duration and has stated that they are willing to commit to this therapy. She has increased risk of pneumothorax due to history of spontaneous pneumothorax in 2009 s/p chest tube placement and resolution. She reports smoking cigarettes excessively at that time and having multiple episodes of bronchitis. She has not had any other episodes and has stopped smoking and has not had bronchitis in several years. We will plan on evaluating her for bleb disease/emphysema with CT scan of chest to assess risk of pneumothorax. We will also obtain her most recent PET scan results from 10/03/2019. She will also un dergo CBC and EKG and if all tests are normal would plan on initiating hyperbaric oxygen treatment with the goal of improving pain and vaginal bleeding and potentially incontinence and her overall quality of life. - HBOT Diagnosis STRN/Late Effects of Radiation (608)
== END 2019-10-17 23:59 ==
LOC: WC 13:03
PROVIDERS: PCP Nurse Practitioner Family; Visit Provider Family Medicine
DX: L59.8 Other specified disorders of the skin and subcutaneous tissue related to radiation (principal); Y84.2 Radiological procedure and radiotherapy as the cause of abnormal reaction of the patient, or of later complication, without mention of misadventure at the time of the procedure; J44.9 Chronic obstructive pulmonary disease, unspecified; C53.9 Malignant neoplasm of cervix uteri, unspecified; Z87.891 Personal history of nicotine dependence
CPT/HCPCS: 99205; G0463

== ENCOUNTER → 2019-11-08 14:01 | Outpatient (CLI) | payer MEDICAID, SELFPAY ==
[2018-02-08 16:23] VITALS: BMI 27.5
--- NOTE | 2019-11-08 14:09 | CT_ITS ---
STUDY: CT CHEST WITHOUT CONTRAST REASON FOR EXAM: Female, 39 years old. Worsening shortness of breath RADIATION DOSAGE (If Supplied By Facility): CTDIvol = ( 9.12 ) mGy, DLP = ( 298.21 ) mGycm TECHNIQUE: Transaxial imaging was performed without the administration of intravenous contrast material. Multiplanar coronal and sagittal images were reformatted. Individualized dose optimization techniques were used for this CT. COMPARISON: Previous plain films FINDINGS: Lung windows show underlying emphysema with bleb formation in the upper lobes. No superimposed infiltrate, or groundglass opacifications. No pleural or pericardial effusions. Soft tissue windows show a right subclavian port tip in the distal SVC. Normal-appearing thyroid gland. Scattered subcentimeter axillary mediastinal lymph nodes. The lungs are normal. There is no demonstrated pleural abnormality. Normal heart and pericardium. Normal mediastinum. Normal hilar regions. Normal unenhanced pulmonary arteries. Normal aorta arch and descending thoracic aorta. Normal osseous structures. There is no demonstrated abnormality of the visualized upper abdomen. CT/Chest without Contrast IMPRESSION: Underlying emphysema with bleb formation in the apices but no superimposed acute pulmonary process No pleural or pericardial effusions No suspicious adenopathy Electronically Signed: Chris Atkinson MD at 15:00 EDT , Service support ,
--- NOTE | 2019-11-08 14:27 | EKG12_ITS ---
Test Reason : PRE HBO Blood Pressure : / mmHG Vent. Rate : 072 BPM Atrial Rate : 072 BPM P-R Int : 158 ms QRS Dur : 098 ms QT Int : 394 ms P-R-T Axes : 031 020 026 degrees QTc Int : 431 ms Normal sinus rhythm Normal ECG Confirmed by SRIRAM ANGELES MD ([id number]), scientific editor GIRMA GOODSON ([id number]) on 11/12/2019 2:38:22 PM Referred By: Arlet Zuluaga Confirmed By:SRIRAM ANGELES MD
== END ==
PROVIDERS: PCP Nurse Practitioner Family; Referring Provider Family Medicine; Visit Provider Family Medicine
DX: J44.9 Chronic obstructive pulmonary disease, unspecified (principal); R07.9 Chest pain, unspecified; C53.1 Malignant neoplasm of exocervix
CPT/HCPCS: 71250; 87635; 93005; U0004

== ENCOUNTER → 2019-11-08 | Outpatient (CLI) | payer MEDICAID, SELFPAY ==
[2018-02-08 16:23] VITALS: BMI 27.5
== END | disposition home or self-care (01) ==
LOC: LABSPEC 12:44
PROVIDERS: PCP Nurse Practitioner Family
DX: C53.1 Malignant neoplasm of exocervix (principal)
CPT/HCPCS: 87635; 94799; G2023; U0004

== ENCOUNTER → 2019-11-15 13:34 | Outpatient (CLI) | payer MEDICAID, SELFPAY ==
[2018-02-08 16:23] VITALS: BMI 27.5
[2019-11-15 16:13] LABS: Absolute Lymphocyte Count 1.18 X10^3/uL (0.83-4.51); Absolute Neutrophil Count 3.8 X10^3/uL (2.0-7.7); Basophil# 0.04 X10^3/uL; Basophil% 0.7 % (0-1); Eosinophil# 0.19 X10^3/uL; Eosinophils% 3.3 % (0-5); Hematocrit 41.2 % (37-47); Hemoglobin 13.8 g/dL (12.0-15.0); Lymphocyte # 1.18 X10^3/ul (4.0); Lymphocyte % 20.7 % (19-41); Mean Corp Hgb Conc 33.5 g/dL (32-36); Mean Corpuscular Hgb 30.5 pg (27.0-32.0); Mean Corpuscular Volume 90.9 fL (81-99); Mean Platelet Vol. 9.1 fl (6.2-12.0); Monocyte# 0.45 X10^3/uL; Monocyte% 7.9 % (0-10); NRBC Flagged by Analyzer 0 % (0-5); Neutrophil # 3.83 X10^3/uL (2.7-7.7); Neutrophil % 67.2 % (47-70); Platelet Count 321 K/mm3 (150-450); RBC Distribution Width CV 12.8 % (11.6-14.6); Red Blood Count 4.53 M/mm3 (4.2-5.4); White Blood Count 5.7 K/mm3 (4.4-11.0)
[2019-11-15 17:01] LABS: Prealbumin 29.3 mg/dL (20.0-40.0)
== END ==
PROVIDERS: PCP Nurse Practitioner Family; Referring Provider Family Medicine; Visit Provider Family Medicine
DX: C53.0 Malignant neoplasm of endocervix (principal); J70.1 Chronic and other pulmonary manifestations due to radiation
CPT/HCPCS: 36415; 84134; 85025

== ENCOUNTER → 2020-01-02 12:17 | Outpatient (CLI) | payer MEDICAID, SELFPAY ==
[2018-02-08 16:23] VITALS: BMI 27.5
[2019-12-04 05:53] VITALS: BMI 29.2
[2020-01-02 13:17] LABS: Color, Urine Yellow (Yellow); Glucose, Dipstick Normal (Normal); Ketone-Dipstick Negative (Negative); Leukocyte Esterase-Dipstick 500 /ul (Negative); Nitrite-Dipstick Negative (Negative); Occult Blood-Urine 250 /ul (Negative); Protein-Dipstick 100 mg/dl (Negative); Urine Bilirubin Dipstick Negative (Negative); Urine Clarity Cloudy (Clear); Urine Urobilinogen Normal (Normal)
== END ==
PROVIDERS: PCP Nurse Practitioner Family
DX: R39.89 Other symptoms and signs involving the genitourinary system (principal)
CPT/HCPCS: 81002; 87077; 87086; 87088; 87186

== ENCOUNTER → 2020-01-15 16:10 | Outpatient (CLI) | payer MEDICAID, SELFPAY ==
[2018-02-08 16:23] VITALS: BMI 27.5
[2019-12-04 05:53] VITALS: BMI 29.2
== END ==
PROVIDERS: PCP Nurse Practitioner Family
DX: R39.89 Other symptoms and signs involving the genitourinary system (principal)
CPT/HCPCS: 87077; 87086; 87088; 87186

== ENCOUNTER 2020-01-15 19:48 | Emergency (ER) | payer MEDICAID, SELFPAY ==
[2018-02-08 16:23] VITALS: BMI 27.5
[2019-12-04 05:53] VITALS: BMI 29.2
[2020-01-15 19:49] VITALS: BP 118/69; PULSE 100; RESP 18; TEMP 36.7; O2SAT 97; BMI 30.1
--- NOTE | 2020-01-15 20:44 | ED.VIS.GEN ---
History of Present Illness Chief Complaint: Other, Pain/Inj Detail of Chief Complaint: Dressing change Informant: Patient Quality: Nephrostomy dressing change Location: Right and left Worsened by: Not applicable Relieved by: Not applicable Associated Symptoms: No constitutional symptoms Narrative: Patient is a 39-year-old female who has a right and left nephrostomy tube who presents to have her dressings changed. She states her boyfriend would change the dressing. Since she is no longer with him she presents to the emergency department. She denies fever, chills night sweats. She denies nausea or vomiting. She completed a course of doxycycline for MRSA urinary tract infection/nephrostomy infection. 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 (7) Rectovaginal fistula Status: Chronic (8) Vesico-vaginal fistula Status: Chronic (9) Cervix cancer Status: Resolved Past Medical History - Allergies and Home Meds Allergies/Adverse Reactions: Allergies Sulfa (Sulfonamide Antibiotics) Allergy (Severe, Verified 01/15/20 19:51) Hives adhesive tape Allergy (Intermediate, Verified 01/15/20 19:51) Rash Primary Care Physician: Emma Giraldo NP-C [Primary Care Provider] - Prior records reviewed: Yes Surgical History: hysterectomy Lives: Alone Smoking Status: Former smoker Alcohol: None Drugs: None - Family History Maternal Family History: Family History (Last Reviewed 12/04/19 @ 09:41 by Lashell Justice) Mother Alcoholism Lung cancer Father Depression Suicidal behavior Uncle CVA (cerebral vascular accident) Grandmother Diabetes Grandfather Lung cancer Family History: Reports: Stroke Review of Systems General: Denies: Chills, Fever, Malaise, Sweats Musculoskeletal: Denies: Myalgias, Arthralgias, Neck pain, Back pain Skin: Denies: Rash, Wounds Neurological: Denies: Headache, Weakness Physical Exam Vital Signs/Narrative: Vital Signs Temp Pulse Resp BP Pulse Ox 01/15/20 19:49 98.0 F 100 18 118/69 97 Inital Vital Signs reviewed: Yes General: Well nourished, Well developed, No Acute Distress Head: Normocephalic, Atraumatic Eyes: Perrl, EOMI. Negative for: Pale conjunctiva Cardiovascular: Regular rate, Regular rhythm Respiratory: No distress Abdomen: Soft, Nontender, Nondistended, Normal bowel sounds Back: Nontender, - - And left nephrostomy tube noted. Negative for: Normal Inspection Skin: Normal color, No rash Neurological: Alert, Oriented x3 Psychological: Normal affect Diagnostic/Tx/Re-eval - Medical Decision Making He was instructed to change right and left nephrostomy tube dressings. ED Disposition - Plan for ED Patient: Disposition: Home or Assisted Living Diagnosis: Encounter for change of dressing Referrals: Emma Giraldo NP-C [Primary Care Provider] -
== END 2020-01-15 21:18 | disposition home or self-care (01) ==
PROVIDERS: Emergency Provider Emergency Medicine; PCP Nurse Practitioner Family
DX: Z43.6 Encounter for attention to other artificial openings of urinary tract (principal); F41.9 Anxiety disorder, unspecified; J45.909 Unspecified asthma, uncomplicated; Z85.41 Personal history of malignant neoplasm of cervix uteri; Z87.09 Personal history of other diseases of the respiratory system; Z86.14 Personal history of Methicillin resistant Staphylococcus aureus infection; Z87.440 Personal history of urinary (tract) infections; Z79.899 Other long term (current) drug therapy; Z87.891 Personal history of nicotine dependence; R39.89 Other symptoms and signs involving the genitourinary system
CPT/HCPCS: 87077; 87086; 87088; 99282

== ENCOUNTER → 2020-01-31 12:58 | Outpatient (CLI) | payer MEDICAID, SELFPAY ==
[2018-02-08 16:23] VITALS: BMI 27.5
[2019-12-04 05:53] VITALS: BMI 29.2
[2020-01-15 19:49] VITALS: BMI 30.1
--- NOTE | 2020-02-01 06:11 | PFT ---
INTRODUCTION: The patient is a 39-year-old female that presents for pulmonary function studies secondary to a diagnosis of COPD. Respiratory therapy reports good patient effort. However, respiratory therapy did report that the patient was very anxious and experienced a great deal of dizziness with testing. Therefore, they were not able to complete more than one attempt of several of the maneuvers. Bronchodilators were used during testing. INTERPRETATION: Forced expiration spirometry demonstrates no evidence of a large airways obstructive ventilatory defect. There was no significant response to aerosolized bronchodilators. Spirograms are of good quality and plateau normally. Body plethysmography was performed and reveals lung volumes to be within normal limits. Diffusing capacity by single breath CO is reduced at 67% of predicted. IMPRESSION: Isolated reduction in diffusing capacity, which could be related to an underlying pulmonary vascular disorder such as pulmonary hypertension. There are no previous pulmonary function studies available for comparison.
== END ==
PROVIDERS: PCP Nurse Practitioner Family; Referring Provider Internal Medicine Critical Care Medicine; Visit Provider Internal Medicine Critical Care Medicine
DX: J44.9 Chronic obstructive pulmonary disease, unspecified (principal); Z87.09 Personal history of other diseases of the respiratory system
CPT/HCPCS: 94060; 94726; 94729

== ENCOUNTER 2020-02-11 08:27 | Emergency (ER) | payer MEDICAID, SELFPAY ==
[2018-02-08 16:23] VITALS: BMI 27.5
[2020-02-11 08:29] VITALS: BP 136/61; PULSE 125; RESP 24; TEMP 36.2; O2SAT 98; BMI 30.7
--- NOTE | 2020-02-11 08:39 | ED.VIS.GEN ---
History of Present Illness Chief Complaint: GI Bleed Informant: Patient Narrative: Patient is 39-year-old female who presents to the emergency department for blood in her colostomy bag. She woke up this morning with this. Never had this happen before in the past. She has had a colostomy since this past May. 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 She also has bilateral nephrostomy tubes. She did have this changed yesterday. She is not on any anticoagulation medications. She finished her radiation treatment in 2018. Not currently undergoing any chemotherapy. She denies any significant abdominal pain. No chest pain/shortness of breath. No lightheadedness or syncopal episodes. He did empty the colostomy once this morning which had bright red blood in it. It has started to fill up again. Past Medical History - Allergies and Home Meds Allergies/Adverse Reactions: Allergies Sulfa (Sulfonamide Antibiotics) Allergy (Severe, Verified 02/11/20 08:47) Hives adhesive tape Allergy (Intermediate, Verified 02/11/20 08:47) Rash Primary Care Physician: Emma Giraldo NP-C [Primary Care Provider] - Prior records reviewed: Yes Past Medical History: - - Cervical cancer, rectovaginal fistula, COPD, asthma Surgical History: hysterectomy Smoking Status: Never smoker - Family History Maternal Family History: Family History (Last Reviewed 12/04/19 @ 09:41 by Lashell Justice) Mother Alcoholism Lung cancer Father Depression Suicidal behavior Uncle CVA (cerebral vascular accident) Grandmother Diabetes Grandfather Lung cancer Family History: Reports: Stroke Review of Systems All systems negative except as indicated General: Denies: Chills, Fever, Sweats Eyes: Denies: Visual changes - bilaterally, Diplopia ENT: Denies: Rhinorrhea, Sore throat Cardiovascular: Denies: Chest pain, Palpitations Respiratory: Denies: Dyspnea, Cough, Dyspnea on exertion Gastrointestinal: Reports: Abdominal pain. Denies: Nausea, Vomiting, Diarrhea Genitourinary: Denies: Dysuria, Hematuria, Frequency Musculoskeletal: Denies: Back pain, Extremity Pain Skin: Denies: Rash, Wounds Neurological: Denies: Headache, Weakness, Numbness Hematologic: Denies: Easy bruising, Easy bleeding Physical Exam Vital Signs/Narrative: Vital Signs Temp Pulse Resp BP Pulse Ox 02/11/20 08:29 97.2 F L 125 H 24 H 136/61 H 98 General: Well nourished, Well developed, No Acute Distress Head: Normocephalic, Atraumatic Eyes: Perrl, EOMI ENT: Moist mucous membranes, No rhinorrhea Neck: Supple, Nontender Cardiovascular: Regular rhythm, No murmurs, Tachycardia Respiratory: No distress, CTA bilaterally, Chest nontender Abdomen: Soft, Nondistended, Normal bowel sounds, Tender - Mild to deep palpation Back: Nontender, Normal Inspection Extremities: Nontender, No edema Skin: Normal color, No rash Neurological: Alert, Oriented x3, Cranial nerves II-XII grossly intact, Normal Strength, Normal Sensation Psychological: Normal affect, Normal Mood Diagnostic/Tx/Re-eval - Medical Decision Making Patient presents to the ED for bright red blood in colostomy. No significant abdominal pain. She is mildly tachycardic on physical exam but without hypotension. Started on IV fluids. Basic lab work being obtained. Do not have GI services and her surgeon is at [facility]. I did contact them and they do accept the patient in the emergency department to better evaluate her. Patient's H&H well within normal limits. No other significant acute abnormality with lab work. Heart rate did come down with IV fluids. We will transfer down at this time. She understands and is agreeable with this plan. ED Disposition - Plan for ED Patient: Disposition: [facility] Diagnosis: GI bleed Referrals: Emma Giraldo NP-C [Primary Care Provider] -
[2020-02-11] MEDS: 0.9% Normal Saline 1,000 ML 999 ML IV (08:46)
[2020-02-11 09:06] LABS: Absolute Lymphocyte Count 1.75 X10^3/uL (0.83-4.51); Absolute Neutrophil Count 7.7 X10^3/uL (2.0-7.7); Basophil# 0.03 X10^3/uL; Basophil% 0.3 % (0-1); Eosinophil# 0.22 X10^3/uL; Eosinophils% 2.1 % (0-5); Hematocrit 40.5 % (37-47); Hemoglobin 13.4 g/dL (12.0-15.0); Lymphocyte # 1.75 X10^3/ul (4.0); Lymphocyte % 16.7 % (19-41); Mean Corp Hgb Conc 33.1 g/dL (32-36); Mean Corpuscular Hgb 30.4 pg (27.0-32.0); Mean Corpuscular Volume 91.8 fL (81-99); Mean Platelet Vol. 8.9 fl (6.2-12.0); Monocyte# 0.79 X10^3/uL; Monocyte% 7.5 % (0-10); NRBC Flagged by Analyzer 0 % (0-5); Neutrophil # 7.67 X10^3/uL (2.7-7.7); Neutrophil % 73.1 % (47-70); Platelet Count 363 K/mm3 (150-450); RBC Distribution Width CV 12.2 % (11.6-14.6); RBC Distribution Width SD 41.7 fl (35.1-43.9); Red Blood Count 4.41 M/mm3 (4.2-5.4); White Blood Count 10.5 K/mm3 (4.4-11.0)
[2020-02-11 09:23] LABS: ALB/GLOB Ratio 0.9 RATIO (0.9-2.4); AST(SGOT) 16 U/L (15-37); Alanine Aminotransfer ALT/SGPT 26 U/L (13-56); Albumin, Serum 3.5 g/dL (3.2-5.0); Alkaline Phosphatase 84 U/L (45-117); Anion Gap 6 (5-15); BUN 11 mg/dL (7-18); BUN/Creat Ratio 14.6 RATIO (10-20); Calcium,Total 8.8 mg/dL (8.5-10.1); Chloride 108 mmol/L (98-107); Creatinine, Serum 0.75 mg/dL (0.55-1.02); EST Glomerular Filtration Rate 91 mL/min (>60); Est Glom Filt Rate - Afr Amer 110 mL/min (>60); Estimated Creatinine Clearance 86.96 ml/min; Globulin 3.7 g/dL (2.2-4.2); Glucose 99 mg/dL (74-106); Potassium 4.2 mmol/L (3.5-5.1); Protein, Total 7.2 g/dL (6.4-8.2); Sodium Level 139 mmol/L (136-145)
[2020-02-11 09:31] LABS: Lactic Acid 1.4 mmol/L (0.4-1.9)
[2020-02-11 10:16] VITALS: BP 105/63; PULSE 81; RESP 16; O2SAT 100
== END 2020-02-11 10:40 | disposition short-term general hospital (02) ==
PROVIDERS: Emergency Provider Emergency Medicine; PCP Nurse Practitioner Family
DX: K92.2 Gastrointestinal hemorrhage, unspecified (principal); J44.9 Chronic obstructive pulmonary disease, unspecified; Z93.6 Other artificial openings of urinary tract status; Z93.3 Colostomy status; Z92.3 Personal history of irradiation; Z85.41 Personal history of malignant neoplasm of cervix uteri
CPT/HCPCS: 80053; 83605; 84484; 85025; 86850; 86900; 86901; 96360; 99283; J7030; A4216

== ENCOUNTER → 2020-03-23 13:44 | Outpatient (CLI) | payer MEDICAID, SELFPAY ==
[2018-02-08 16:23] VITALS: BMI 27.5
[2020-03-12 05:54] VITALS: BMI 31.6
--- NOTE | 2020-03-23 13:44 | ECHOD_ITS ---
Version 2 Reason For Study: PHTN Procedure This was a 2D Doppler, Color Flow transthoracic echocardiogram. Exam performed in department. Left Ventricle Normal LV size. Left ventricular systolic function is normal. The estimated ejection fraction is 60 %. Normal diastology for age. No regional wall motion abnormalities noted. Right Ventricle Normal RV size. Normal systolic function. Atria Normal left atrium. Normal right atrium. Mitral Valve Normal mitral valve. Tricuspid Valve Normal tricuspid valve. Mild (1+) tricuspid valve insufficiency. Pulmonary artery systolic pressure is 24 mmHg. Normal pulmonary artery pressure. Aortic Valve Normal aortic valve. Trisinus/trileaflet aortic valve. Pulmonic Valve Normal pulmonic valve. Great Vessels Normal aortic root. The pulmonary artery is normal size. Normal inferior vena cava. Pericardium/Pleural No pericardial effusion. MMode/2D Measurements & Calculations LVIDd: 4.3 cm IVSd: 0.70 cm Ao root diam: 3.3 cm LVIDs: 3.0 cm LVPWd: 0.68 cm RVDd: 3.2 cm FS: 29.4 % LAV(MOD-bp): 33.4 ml LA A4 area: 12.6 cm2 LA dimension(2D): 3.2 cm LAV(MOD-bp) Indexed: 17.9 ml/m2 LAV(MOD-sp2): 37.4 ml LAV(MOD-sp4): 25.5 ml RA A4 area: 9.5 cm2 Time Measurements MV dec time: 0.31 sec Doppler Measurements & Calculations MV E max eleazar: 69.6 cm/sec Lat Peak E' Eleazar: 11.2 cm/sec Med Peak E' Eleazar: 9.7 cm/sec MV A max eleazar: 42.1 cm/sec E/E' lat: 6.2 E/E' med: 7.1 MV E/A: 1.7 Ao V2 max: 96.3 cm/sec LV V1 max: 92.9 cm/sec PA V2 max: 82.6 cm/sec Ao max P.7 mmHg LV V1 max P.5 mmHg TR max eleazar: 230.9 cm/sec TR max P.3 mmHg Interpretation Summary Normal LV size. Left ventricular systolic function is normal. The estimated ejection fraction is 60 %. Pulmonary artery systolic pressure is 24 mmHg. Normal pulmonary artery pressure. The global longitudinal strain is normal. The global longitudinal strain = -19.5 % (normal). Ordering Physician: Oli Chambers Referring Physician: MARVEL READ Performed By: Silke Quevedo, ITZCS, RVT
== END ==
PROVIDERS: PCP Nurse Practitioner Family; Referring Provider Internal Medicine Critical Care Medicine; Visit Provider Internal Medicine Critical Care Medicine
DX: I27.20 Pulmonary hypertension, unspecified (principal); R94.2 Abnormal results of pulmonary function studies
CPT/HCPCS: 93306

== ENCOUNTER → 2020-03-24 08:15 | Outpatient (CLI) | payer MEDICAID, SELFPAY ==
[2018-02-08 16:23] VITALS: BMI 27.5
[2020-03-12 05:54] VITALS: BMI 31.6
[2020-03-24 08:41] VITALS: PULSE 81; PULSE 83; PULSE 93; PULSE 94; PULSE 97; PULSE 98; O2SAT 100; O2SAT 98; O2SAT 99
--- NOTE | 2020-03-25 08:40 | WT_ITS ---
PSN 6 Minute Walk Test - 6 Minute Walk Test 6 Minute Walk Test: 6 Minute Walk Test PSN:6-Minute Walk Test Start: 03/24/20 08:40 Freq: Status: Active Protocol: RESP.6MINW Document 03/24/20 08:41 [facility] (Rec: 03/24/20 08:45 [id number]) 6 Minute Walk Test Date Performed 03/24/20 Time Performed 08:15 Height 5 ft 4 in Weight: 180 lb Weight in Pounds 180.[address]: Oli Chambers Assistive device used: None Pre-test Oxygen Delivery Method Room Air Pulse Ox (%) 100 Pulse Rate (60-100 beats/min) 83 Dyspnea Valeri Scale (0-10) 3 Reported Symptoms Increased Work of Breathing 1st minute Oxygen Delivery Method Room Air Pulse Ox (%) 99 Pulse Rate (60-100 beats/min) 93 Dyspnea Valeri Scale (0-10) 3 Number of Rests Taken 0 Reported Symptoms Increased Work of Breathing 2nd minute Oxygen Delivery Method Room Air Pulse Ox (%) 99 Pulse Rate (60-100 beats/min) 98 Dyspnea Valeri Scale (0-10) 3 Number of Rests Taken 0 Reported Symptoms Increased Work of Breathing 3rd minute Oxygen Delivery Method Room Air Pulse Ox (%) 98 Pulse Rate (60-100 beats/min) 98 Dyspnea Valeri Scale (0-10) 3 Number of Rests Taken 0 Reported Symptoms Increased Work of Breathing 4th minute Oxygen Delivery Method Room Air Pulse Ox (%) 98 Pulse Rate (60-100 beats/min) 94 Dyspnea Valeri Scale (0-10) 3 Number of Rests Taken 0 Reported Symptoms Increased Work of Breathing 5th minute Oxygen Delivery Method Room Air Pulse Ox (%) 98 Pulse Rate (60-100 beats/min) 93 Dyspnea Valeri Scale (0-10) 4 Number of Rests Taken 0 Reported Symptoms Increased Work of Breathing 6th minute Oxygen Delivery Method Room Air Pulse Ox (%) 99 Pulse Rate (60-100 beats/min) 97 Dyspnea Valeri Scale (0-10) 4 Number of Rests Taken 0 Reported Symptoms Increased Work of Breathing Post-test Oxygen Delivery Method Room Air Pulse Ox (%) 100 Pulse Rate (60-100 beats/min) 81 Dyspnea Valeri Scale (0-10) 3 Reported Symptoms Increased Work of Breathing Full Laps Walked 18 Partial Lap, Number of Tiles Walked 22 Total Distance Walked (ft) 1084 - Interpretation Interpretation: The patient ambulated 1084 feet over the course of 6 minutes beginning on room air without assistive devices or breaks. Pretesting oxygen saturation was noted to be 100% on room air. With ambulation, the césar oxygen saturation was 98%. There was no significant exertional oxygen desaturation. - Recommendations Recommendations: There is no indication for the use of supplemental oxygen at this time.
== END ==
PROVIDERS: PCP Nurse Practitioner Family; Referring Provider Internal Medicine Critical Care Medicine; Visit Provider Internal Medicine Critical Care Medicine
DX: R94.2 Abnormal results of pulmonary function studies (principal)
CPT/HCPCS: 94618

== ENCOUNTER → 2020-04-08 16:03 | Outpatient (CLI) | payer MEDICAID, SELFPAY ==
[2018-02-08 16:23] VITALS: BMI 27.5
[2020-03-12 05:54] VITALS: BMI 31.6
== END ==
PROVIDERS: PCP Nurse Practitioner Family
DX: N30.91 Cystitis, unspecified with hematuria (principal); Z93.6 Other artificial openings of urinary tract status
CPT/HCPCS: 87077; 87086; 87088; 87186

== ENCOUNTER → 2020-05-01 12:16 | Outpatient (CLI) | payer MEDICAID, SELFPAY ==
[2018-02-08 16:23] VITALS: BMI 27.5
[2020-03-12 05:54] VITALS: BMI 31.6
[2020-05-01 13:01] LABS: Absolute Lymphocyte Count 1.24 X10^3/uL (0.83-4.51); Absolute Neutrophil Count 4.9 X10^3/uL (2.0-7.7); Basophil# 0.05 X10^3/uL; Basophil% 0.7 % (0-1); Eosinophil# 0.65 X10^3/uL; Eosinophils% 8.8 % (0-5); Hematocrit 33.7 % (37-47); Hemoglobin 10.8 g/dL (12.0-15.0); Lymphocyte # 1.24 X10^3/ul (4.0); Lymphocyte % 16.8 % (19-41); Mean Corpuscular Volume 90.6 fL (81-99); Mean Platelet Vol. 8.6 fl (6.2-12.0); Monocyte# 0.51 X10^3/uL; Monocyte% 6.9 % (0-10); NRBC Flagged by Analyzer 0 % (0-5); Neutrophil # 4.88 X10^3/uL (2.7-7.7); Neutrophil % 66.4 % (47-70); Platelet Count 537 K/mm3 (150-450); RBC Distribution Width CV 12.9 % (11.6-14.6); RBC Distribution Width SD 42.7 fl (35.1-43.9); Red Blood Count 3.72 M/mm3 (4.2-5.4); White Blood Count 7.4 K/mm3 (4.4-11.0)
[2020-05-01 13:40] LABS: Anion Gap 5 (5-15); BUN 11 mg/dL (7-18); BUN/Creat Ratio 13.7 RATIO (10-20); Calcium,Total 8.9 mg/dL (8.5-10.1); Chloride 105 mmol/L (98-107); EST Glomerular Filtration Rate 84 mL/min (>60); Est Glom Filt Rate - Afr Amer 102 mL/min (>60); Glucose 103 mg/dL (74-106); Potassium 3.9 mmol/L (3.5-5.1); Sodium Level 138 mmol/L (136-145)
== END ==
PROVIDERS: PCP Nurse Practitioner Family
DX: N82.0 Vesicovaginal fistula (principal); Z98.890 Other specified postprocedural states
CPT/HCPCS: 36415; 80048; 85025

== ENCOUNTER → 2020-05-13 14:20 | Outpatient (CLI) | payer MEDICAID, SELFPAY ==
[2018-02-08 16:23] VITALS: BMI 27.5
[2020-03-12 05:54] VITALS: BMI 31.6
--- NOTE | 2020-05-13 14:25 | US_ITS ---
STUDY: RENAL ULTRASOUND - COMPLETE REASON FOR EXAM: Female, 39 years old. Hydronephrosis TECHNIQUE: Ultrasound evaluation of the kidneys was performed with real-time and static ramsey-scale imaging. COMPARISON: None available. FINDINGS: RIGHT KIDNEY: Normal location of the right kidney, which is normal in size. The right kidney measures 12 cm. There is a normal cortex of the right kidney. There is no right renal mass or cyst. There are no right renal calculi. There is mild hydronephrosis. DISTAL RIGHT URETER: There is non-visualization of the distal right ureter. There is no demonstrated right ureterovesical junction calculus. There is a visualized right ureteral jet. LEFT KIDNEY: Normal location of the left kidney, which is normal in size. The left kidney measures 12 cm. There is a normal cortex of the left kidney. There is no left renal mass or cyst. There are no left renal calculi. There is no left hydronephrosis. DISTAL LEFT URETER: There is non-visualization of the distal left ureter. There is no demonstrated left ureterovesical junction calculus. There is a visualized left ureteral jet. AORTA: No evidence of abdominal aortic aneurysm. I.V.C.: The IVC is patent. BLADDER: The urinary bladder is partially distended and appears unremarkable. US/Kidney and Bladder IMPRESSION: Mild right-sided hydronephrosis. Unremarkable left kidney. Electronically Signed: Brady Bray, at 22:03 EST Tel , Service support ,
[2020-05-13 15:59] LABS: Anion Gap 4 (5-15); BUN 9 mg/dL (7-18); BUN/Creat Ratio 12.6 RATIO (10-20); Chloride 105 mmol/L (98-107); Creatinine, Serum 0.72 mg/dL (0.55-1.02); EST Glomerular Filtration Rate 96 mL/min (>60); Est Glom Filt Rate - Afr Amer 116 mL/min (>60); Glucose 81 mg/dL (74-106); Potassium 3.9 mmol/L (3.5-5.1); Sodium Level 137 mmol/L (136-145)
== END ==
PROVIDERS: PCP Nurse Practitioner Family
DX: N13.1 Hydronephrosis with ureteral stricture, not elsewhere classified (principal)
CPT/HCPCS: 36415; 76770; 80048

== ENCOUNTER → 2020-11-02 15:57 | Outpatient (CLI) | payer MEDICAID, SELFPAY ==
[2018-02-08 16:23] VITALS: BMI 27.5
[2020-03-12 05:54] VITALS: BMI 31.6
--- NOTE | 2020-11-02 16:01 | US_ITS ---
INDICATION: HYDRONEHPROSIS EVALUATION S/P URINARY DIVERSION EXAMINATION: US Kidney(s) complete (eg, kidneys and bladder) TECHNIQUE: Garner scale and color doppler images were obtained of the kidneys. COMPARISON: 05/13/2020. FINDINGS: RIGHT KIDNEY: Normal location of the right kidney, which is normal in size. The right kidney measures 10.3 cm. There is a normal cortex of the right kidney. The renal cortex measures 1.5 cm. There is no right renal mass or cyst. There are no right renal calculi. There is no right hydronephrosis. LEFT KIDNEY: Normal location of the left kidney, which is normal in size. The left kidney measures 12.4 cm. There is a normal cortex of the left kidney. The renal cortex measures 1.5 cm. There is no left renal mass or cyst. There are no left renal calculi. There is no left hydronephrosis. US/Kidney and Bladder IMPRESSION: No hydronephrosis. Electronically Signed: Sherman Gabriel MD at 16:56 EDT Tel , Service support ,
== END ==
PROVIDERS: PCP Nurse Practitioner Family
DX: N13.1 Hydronephrosis with ureteral stricture, not elsewhere classified (principal); N82.3 Fistula of vagina to large intestine; C53.0 Malignant neoplasm of endocervix; N82.0 Vesicovaginal fistula; E66.9 Obesity, unspecified; Z98.890 Other specified postprocedural states
CPT/HCPCS: 76770

== ENCOUNTER → 2021-01-15 11:58 | Outpatient (CLI) | payer MEDICAID, SELFPAY ==
[2018-02-08 16:23] VITALS: BMI 27.5
== END ==
PROVIDERS: PCP Nurse Practitioner Family
DX: Z01.818 Encounter for other preprocedural examination (principal)
CPT/HCPCS: 87426; C9803

== ENCOUNTER → 2021-01-22 12:46 | Outpatient (CLI) | payer MEDICAID, SELFPAY ==
[2018-02-08 16:23] VITALS: BMI 27.5
== END ==
PROVIDERS: PCP Nurse Practitioner Family
DX: Z01.818 Encounter for other preprocedural examination (principal)
CPT/HCPCS: 87426; C9803

== ENCOUNTER → 2021-01-26 14:09 | Outpatient (CLI) | payer MEDICAID, SELFPAY ==
[2018-02-08 16:23] VITALS: BMI 27.5
== END ==
PROVIDERS: PCP Nurse Practitioner Family
DX: Z01.818 Encounter for other preprocedural examination (principal)
CPT/HCPCS: 87635; C9803; U0005; U0003

== ENCOUNTER → 2021-03-22 09:24 | Outpatient (CLI) | payer MEDICAID, SELFPAY ==
[2018-02-08 16:23] VITALS: BMI 27.5
== END ==
PROVIDERS: PCP Nurse Practitioner Family
DX: Z11.52 Encounter for screening for COVID-19 (principal)
CPT/HCPCS: 87635; C9803; U0005; U0003

== ENCOUNTER → 2021-05-19 08:10 | Outpatient (CLI) | payer MEDICAID, SELFPAY ==
[2018-02-08 16:23] VITALS: BMI 27.5
--- NOTE | 2021-05-19 09:49 | STEWCON_ITS ---
Reason For Study: PREOP, GIBSON, SOLITARY LUNG NODULE Stress Results Protocol: Oli Protocol WITH DEFINITY Maximum Predicted HR: 179 bpm Target HR: 152 bpm % Maximum Predicted HR: 85 % DurationHeart Rate Stage (mm:ss) (bpm) BP Comment BASELINE 82 104/823 CC DEFINITY STAGE 1 3:00 125 138/70 STAGE 2 2:01 153 / RECOVERY 90 100/80 Stress Duration: 5:01 mm:ss Maximum Stress HR: 153 bpm Baseline Echocardiogram Findings Stress Echo Wall motion Data Resting WM Intermediate WM Stress WM ECHO/Stress Test Echo W/Contrast Interpretation Summary Exercise stress echo with and without Definity enhancement. 41-year-old lady with a history of chest pain. Stress protocol: Resting EKG demonstrates normal sinus rhythm with a rate of 82 bpm normal inter vals are noted resting blood pressure is 104/82 mmHg. the maximum heart rate attained was 155 bpm which was 86% of max impact at heart rate the maximum workload was 7 metabolic equivalents. At r est there were no ST or T wave changes noted to suggest ischemia and at peak exercise upsloping ST c hanges were noted with did not meet the criteria for ischemia. No clinical angina noted the test was terminated due to dyspnea. Stress echocardiogram. Stress echocardiographic images were obtained with and w ithout Definity enhancement the resting echocardiogram demonstrated an ejection fraction of 55% with no wall motion abnormalities noted the peak ejection fraction was 65%. No wall motion abnormal ities were noted to suggest ischemia. Conclusion: Normal exercise stress echo with no EKG criteria for ischemia. Moderate workload attained. Normal stress and resting echocardiographic images. Ordering Physician: GENEVIEVE Performed By: Betty Larson, BRENDAN, RVT
--- NOTE | 2021-05-20 13:05 | PFT ---
INTRODUCTION: The patient is a 41-year-old female who presents for pulmonary function studies secondary to a diagnosis of preop evaluation for lobectomy. Respiratory therapy reported good patient effort. Bronchodilators were used during testing. INTERPRETATION: Forced expiration spirometry demonstrates no evidence of a large airways obstructive ventilatory defect with a postbronchodilator FEV1 to FVC of 74% of predicted. There was a significant response to aerosolized bronchodilators. Spirograms are of good quality and plateau gradually indicating slow emptying of the lungs. Body plethysmography was performed and reveals lung volumes to be within normal limits. Diffusing capacity by single breath CO was at the lower limits of normal at 68% of predicted. IMPRESSION: Stigmata of small airways disease with significant bronchodilator response.
== END ==
PROVIDERS: PCP Nurse Practitioner Family
DX: R91.1 Solitary pulmonary nodule (principal); R91.8 Other nonspecific abnormal finding of lung field; R06.00 Dyspnea, unspecified
CPT/HCPCS: 93017; 93350; 94060; 94726; 94729; Q9957; A4216; C8928

== ENCOUNTER → 2022-03-08 | Outpatient (CLI) | payer MEDICARE, MEDICAID, SELFPAY ==
[2018-02-08 16:23] VITALS: BMI 27.5
[2022-03-08 09:42] LABS: Absolute Lymphocyte Count 1.19 X10^3/uL (0.83-4.51); Absolute Neutrophil Count 5.1 X10^3/uL (2.0-7.7); Basophil# 0.03 X10^3/uL; Basophil% 0.4 % (0-1); Eosinophil# 0.09 X10^3/uL; Eosinophils% 1.3 % (0-5); Hematocrit 39.7 % (37-47); Hemoglobin 13.1 g/dL (12.0-15.0); Lymphocyte # 1.19 X10^3/ul (0.83-4.51); Lymphocyte % 17.1 % (19-41); Mean Corpuscular Hgb 30.5 pg (27.0-32.0); Mean Corpuscular Volume 92.3 fL (81-99); Monocyte# 0.55 X10^3/uL; Monocyte% 7.9 % (0-10); NRBC Flagged by Analyzer 0 % (0-5); Neutrophil # 5.07 X10^3/uL (2.7-7.7); Platelet Count 271 K/mm3 (150-450); RBC Distribution Width CV 13.9 % (11.6-14.6); RBC Distribution Width SD 43.8 fl (35.1-43.9)
[2022-03-08 10:01] LABS: Creatinine, Urine (random) < 13.00 mg/dL (NO RANGE EST.); Protein, Urine (Random) 9.1 mg/dL (<11.9)
[2022-03-08 10:21] LABS: AST(SGOT) 25 U/L (15-37); Alanine Aminotransfer ALT/SGPT 51 U/L (13-56); Albumin, Serum 3.5 g/dL (3.2-5.0); Alkaline Phosphatase 117 U/L (45-117); Anion Gap 6 (5-15); BUN 7 mg/dL (7-18); BUN/Creat Ratio 9.8 RATIO (10-20); Bilirubin, Direct 0.07 mg/dL (0.00-0.30); Calcium,Total 9.2 mg/dL (8.5-10.1); Chloride 106 mmol/L (98-107); Creatinine, Serum 0.72 mg/dL (0.55-1.02); EST Glomerular Filtration Rate 95 mL/min (>60); Est Glom Filt Rate - Afr Amer 115 mL/min (>60); Globulin 3.8 g/dL (2.2-4.2); Glucose 91 mg/dL (74-106); Potassium 3.9 mmol/L (3.5-5.1); Protein, Total 7.3 g/dL (6.4-8.2); Sodium Level 141 mmol/L (136-145)
== END | disposition home or self-care (01) ==
LOC: LAB 08:33
PROVIDERS: PCP Nurse Practitioner Family
DX: C53.0 Malignant neoplasm of endocervix (principal)
CPT/HCPCS: 36415; 80048; 80076; 82570; 84156; 85025

== ENCOUNTER 2025-01-01 14:46 | Outpatient (CLI) | payer MEDICARE, MEDICAID, SELFPAY ==
[2018-02-08 16:23] VITALS: BMI 27.5
== END 2025-01-01 23:59 | disposition home or self-care (01) ==
PROVIDERS: PCP Nurse Practitioner Family
DX: C53.0 Malignant neoplasm of endocervix (principal)
CPT/HCPCS: 96523; A4216

== ENCOUNTER 2025-04-16 15:36 | Outpatient (CLI) | payer MEDICARE, MEDICAID, SELFPAY ==
[2018-02-08 16:23] VITALS: BMI 27.5
== END 2025-04-16 23:59 | disposition home or self-care (01) ==
LOC: MEDOUTP 15:36
PROVIDERS: PCP Nurse Practitioner Family
DX: C53.0 Malignant neoplasm of endocervix (principal)
CPT/HCPCS: 96523; A4216

== ENCOUNTER 2025-06-05 08:58 | Outpatient (CLI) | payer MEDICARE, MEDICAID, SELFPAY ==
[2018-02-08 16:23] VITALS: BMI 27.5
== END 2025-06-05 23:59 | disposition home or self-care (01) ==
LOC: MEDOUTP 08:58
PROVIDERS: PCP Nurse Practitioner Family
DX: C53.0 Malignant neoplasm of endocervix (principal)
CPT/HCPCS: 96523